=== PATIENT | female | born 1950 ===

== ENCOUNTER 2022-01-26 06:45 | Day surgery (SDC) | payer OTHER ==
[~2022-01-26] VITALS: Ht 152.4 cm; Wt 66.2 kg
[~2022-01-26 06:45] MED LIST: ACID REDUCER20 M1 PO; BUDESONIDE-FO10.2 G1 IH; CLONAZEPAM1 MG PO; DILTIAZEM ER180 M2 PO; LIPITOR20 MG PO; METFORMIN HCL500 M3 PO; PEPCID AC10 MG PO; SINGULAIR10 MG PO; SYNTHROID75 MCG PO
[2022-01-26] MEDS ORDERED: PERCOCET 5-3251 EACH PO (10:25)
== END 2022-01-26 14:05 | disposition home or self-care (01) ==
LOC: CIR.AMB 06:45 → SURG 12:30 → CIR.AMB 12:30 → EDSTATUS 12:30 → CIR.AMB 14:05
PROVIDERS: ATTEND Surgery
DX: C73 Malignant neoplasm of thyroid gland (principal); E04.1 Nontoxic single thyroid nodule; Z20.822 Contact with and (suspected) exposure to COVID-19; J45.909 Unspecified asthma, uncomplicated; Z87.891 Personal history of nicotine dependence; E11.9 Type 2 diabetes mellitus without complications; Z79.84 Long term (current) use of oral hypoglycemic drugs; K21.9 Gastro-esophageal reflux disease without esophagitis; E06.3 Autoimmune thyroiditis